=== PATIENT | female | born 1930 | race Two or more races ===

== ENCOUNTER 2016-12-14 19:01 | Emergency (ER) | payer MEDICARE, OTHER ==
[~2016-12-14] VITALS: Ht 162.6 cm; Wt 56.7 kg
--- NOTE | 2016-12-14 19:03 | NUR ---
PT PUSHPA FROM [facility]. SENT BY DR PENALOZA TO R/O DVT TO LLE.PT DENIES LOWER EXTREMITY PAIN. PLACED ON MONITOR. AWAITING MD STRICKLAND.
--- NOTE | 2016-12-14 19:28 | NUR ---
DR HERNANDEZ AT BEDSIDE FOR EVAL.
[2016-12-14] MEDS ORDERED: GLYB5TAB7 PO (19:39)
[2016-12-14] MEDS ORDERED: POLY17PO4 PO (19:39)
[2016-12-14] MEDS ORDERED: BLOO-668 IN (19:39)
[2016-12-14] MEDS ORDERED: FELO10TA3 PO (19:39)
[2016-12-14] MEDS ORDERED: AMIN30LI2 PO (19:39)
[2016-12-14] MEDS ORDERED: ONDA4TAB5 PO (19:39)
[2016-12-14] MEDS ORDERED: MAGN200T5 PO (19:39)
[2016-12-14] MEDS ORDERED: SIMV40TA2 PO (19:39)
[2016-12-14] MEDS ORDERED: METF10002 PO (19:39)
[2016-12-14] MEDS ORDERED: MELO-270 PO (19:39)
[2016-12-14] MEDS ORDERED: ASPI81TA2 PO (19:39)
--- NOTE | 2016-12-14 19:39 | NUR ---
IV LINE STARTED BLOOD DRAWN AND SENT TO LAB.
[2016-12-14 19:52] LABS: CALCIUM, SERUM 8.8 mg/dL (8.5-10.1); CARBON DIOXIDE 26 mmol/L (21-32); CHLORIDE 101 mmol/L (98-107); CREATININE 0.6 mg/dL (0.6-1.3); GLUCOSE 204 mg/dL (74-106); POTASSIUM 4.3 mmol/L (3.5-5.1); SODIUM SERUM 138 mmol/L (136-145); UREA NITROGEN, BLOOD 24 mg/dL (7-18)
[2016-12-14 19:54] LABS: BASOPHILS # (AUTO) 0.3 /CMM (0.0-0.2); EOSINOPHILS # (AUTO) 0.2 /CMM (0.0-0.7); EOSINOPHILS % (AUTO) 1.9 % (0.0-6.0); HEMATOCRIT 40 % (33-45); HEMOGLOBIN 13.2 g/dL (11.5-14.8); LYMPHOCYTES # (AUTO) 3.1 /CMM (0.8-4.8); LYMPHOCYTES % (AUTO) 24.3 % (20.0-44.0); MEAN CORPUSCULAR HEMOGLOBIN 30 PG (26.0-33.0); MEAN CORPUSCULAR HGB CONC 33 g/dl (31.0-36.0); MEAN CORPUSCULAR VOLUME 91 fL (82-100); MONOCYTES # (AUTO) 0.9 /CMM (0.1-1.30); MONOCYTES % (AUTO) 7.3 % (2.0-12.0); NEUTROPHILS # (AUTO) 8.2 /CMM (1.8-8.9); NEUTROPHILS % (AUTO) 64.5 % (43.0-81.0); PLATELET COUNT (AUTO) 313 /CMM (150-450); RDW COEFFICIENT OF VARIATION 13.2 (11.5-15.0); RED BLOOD CELL COUNT(AUTO) 4.38 MIL/uL (4.0-5.2); WHITE BLOOD COUNT (AUTO) 12.7 K/uL (4.3-11.0)
[2016-12-14 19:56] LABS: PROTHROMBIN TIME 10.4 SECS (9.5-12.7)
--- NOTE | 2016-12-14 20:11 | NUR ---
U/S TECH AT BEDSIDE FOR BLE DUPLEX ULTRASOUND.
--- NOTE | 2016-12-14 21:20 | NUR ---
CALLED [facility] FOR TRANSPORT BACK TO [facility], ETA 1 HOUR
--- NOTE | 2016-12-14 22:18 | NUR ---
PT D/C BACK TO [facility]IA [facility]. STABLE CONDITION. ANTOINETTE D/C'D.
[2016-12-14 22:20] VITALS: BP 128/77
== END 2016-12-14 22:21 | disposition home or self-care (01) ==
LOC: ER 19:02
DX: M79.604 Pain in right leg (principal); E86.0 Dehydration; I25.10 Atherosclerotic heart disease of native coronary artery without angina pectoris; I10 Essential (primary) hypertension; E11.9 Type 2 diabetes mellitus without complications; F32.9 Major depressive disorder, single episode, unspecified; E78.5 Hyperlipidemia, unspecified; Z88.8 Allergy status to other drugs, medicaments and biological substances; Z79.82 Long term (current) use of aspirin
CPT/HCPCS: 36415; 80048; 85025; 85730; 93970; 99285; A4606; A6407; J7040; Z7610